=== PATIENT | male | born 1955 | race American Indian/Alaskan Native ===

== ENCOUNTER 2019-09-14 09:00 | Emergency (ER) | payer BC, OTHER ==
[~2019-09-14] VITALS: Ht 165.1 cm; Wt 52.2 kg
== END 2019-09-14 10:57 | disposition home or self-care (01) ==
LOC: ED 09:00
DX: S82.002A Unspecified fracture of left patella, initial encounter for closed fracture (principal); Z87.891 Personal history of nicotine dependence; W01.0XXA Fall on same level from slipping, tripping and stumbling without subsequent striking against object, initial encounter; D64.9 Anemia, unspecified
CPT/HCPCS: 73560; 99283-25

== ENCOUNTER 2021-07-21 15:21 | Emergency (ER) | payer OTHER ==
[~2021-07-21] VITALS: Ht 165.1 cm; Wt 44.7 kg
[2021-07-21] MEDS ORDERED: CHILDREN'S ASPI81 M1 PO (17:18)
[2021-07-21] MEDS ORDERED: FERROCITE324 MG PO (17:19)
[2021-07-21] MEDS ORDERED: B12 ACTIVE1000 MCG PO (17:19)
[2021-07-21] MEDS ORDERED: PROTONIX40 MG PO (17:19)
== END 2021-07-22 01:03 | disposition home or self-care (01) ==
LOC: ED 15:21
DX: U07.1 COVID-19 (principal); D64.9 Anemia, unspecified; Z86.73 Personal history of transient ischemic attack (TIA), and cerebral infarction without residual deficits; Z87.891 Personal history of nicotine dependence; Z79.82 Long term (current) use of aspirin; Z79.899 Other long term (current) drug therapy; Z23 Encounter for immunization
CPT/HCPCS: 99283-25; J7030; M0243; Q0244

== ENCOUNTER 2021-11-29 10:08 | Inpatient (IN) | payer OTHER ==
[~2021-11-29] VITALS: Ht 165.1 cm; Wt 72.3 kg
[~2021-11-29 10:08] MED LIST: CHILDREN'S ASPI81 M1 PO; FERROCITE324 MG PO; PROTONIX40 MG PO; VITAMIN B-121000 MCG PO
--- NOTE | 2021-11-30 08:38 | NUR ---
RECD REPORT FROM NIGHT RN, ASSUMED ALL CARE OF PT
--- NOTE | 2021-11-30 08:40 | NUR ---
RECD REPORT FROM NIGHT RN, ASSUMED ALL CARE OF PT
--- NOTE | 2021-11-30 09:00 | NUR ---
ASSISTED COLLECTIONS OFFICER WITH BOWEL MOVMENT, PT. INCONTINENT OF BOWEL AND DID USE THE URINAL. ROBYN CARE AND SHE GAVE ORAL CARE. PT. RESTING IN BED, MOSTLY NON VERBAL, VERY SHORT ANSWERS, IVF PATENT TO PUMP. IV ABX INFUSED WELL. ENCOURAGE AND ASSIST WITH TURNS EVERY 2 HOURS.
[2021-11-30] MEDS ORDERED: VITAMIN C500 M1 PO (09:04)
--- NOTE | 2021-11-30 13:30 | NUR ---
PT. OOB IN CHAIR, AMBULATED WITH FWW, RN AND PT FROM HIS ROOM AROUND THE HALLS PAST THE NURSES STATION BACK TO HIS ROOM. HE NEEDED ALOT OF DIRECTION AND CUEING. DID BECOME SOB AND RETURNED TO ROOM, PLACED ON 02 2L NC AND RECOVERED WELL TO RA. SAT IN THE CHAIR FOR MEALS AND ATE SOME LUNCH AND DRANK FLUIDS. IVF PATENT TO PUMP. ABX CONTINUE. DC PLANNING IN PLACE
--- NOTE | 2021-11-30 15:18 | NUR ---
IV PUMP ALARMING IV ABX COMPLETE. PT LYING FLAT IN BED AND REPORTS FEEING "UNCOMFORTABLE." PT REPORTS PAIN BUT IS UNABLE TO QUALIFY OR QUANTIFY PAIN. FLACC SCORE OF 3/10. IV ASSESSED, WNL, NO S/S OF PHLEBITIS NOTED. IV FLUIDS WITH POTASSIUM RESTARTED. PT REPORTS HE HAS HAD A BOWEL MOVEMENT. LARGE BROWN/BLACK BOWEL MOVEMENT NOTED. ROBYN CARE DONE. DEPENDS AND LINENS CHANGED. PT IS ABLE TO ROLL SIDE TO SIDE WITH CARES. PT REPOSITIONED IN BED TO SEMIFOWLER POSITION WITH HEAD ELEVATVED TO 20 DEGREES. PT REPORTS HE IS NOW FEELING COMFORTABLE. NO ADDITIONAL NEEDS AT THIS TIME. CALL LIGHT WITHIN REACH. BED RAILS UP. PTS FAMILY MEMBER TABITHA, CALLED FOR UPDATE. PT UNABLE TO CONFIRM IF JENNIFERA CAN BE UPDATED. TABITHA ENCORUAGED TO CALL OTHER MEMBERS OF THE FAMILY FOR UPDATES. PTS PRIMARY RN UPDATED.
--- NOTE | 2021-11-30 15:56 | NUR ---
CHANGED PATIENT'S TELE BATTERY.
--- NOTE | 2021-11-30 15:56 | NUR ---
WHILE IN THERE ALSO HELPED HIM WITH HIS URNIAL. PATIENT ONLY WENT A LITTLE BIT.
--- NOTE | 2021-11-30 17:32 | CONS ---
[facility] [address], [place] [address] Signed DATE OF CONSULTATION: 11/30/2021 CHIEF COMPLAINT: Failure to thrive. HISTORY OF PRESENT ILLNESS: Colten is a 66-year-old gentleman I actually helped back in 2012 with his weight loss at that time. Apparently, he has continued to lose weight to the point that he basically can barely stand if at all. He has been following along with his primary care providers. He is really not able to provide any history whatsoever. He is slow to respond and his level of consciousness seems to be lowered. Unfortunately, his family is not with him currently. I was not able to contact his life partner Ms. Elis Pina. He was at his primary care provider yesterday and he noticed his white blood cell count was elevated, so they sent him to our local emergency room. In the emergency room, he is no difference and really is currently. A chest x-ray was unremarkable. Amazingly, his abdomen is soft, flat and nontender. His white count is elevated and his lactic acid was borderline around 2.2 with elevated liver function test with a low albumin of 2.8 and a low potassium. The chest x-ray was unremarkable. CT scan of abdomen and pelvis showed just mild diffuse small bowel thickening and a thickening to the entire left colon and even part of the rectum. Consequently, ischemic colitis seems less likely. He has been admitted and resuscitated overnight with small improvements in his laboratory work. In the meantime, I was asked to see him as a general surgeon on-call. I did review my colonoscopy from 2012 and it was for weight loss at that time. It was unremarkable. He had a slight left prostate nodule. PAST MEDICAL HISTORY: 1. Chronic T9 compression fracture. 2. Bladder diverticula. 3. Possibly bilateral undescended testicles. 4. Anemia. 5. Weight loss. 6. TIA. 7. Nocturia. 8. Hard of hearing. 9. Chronic low back pain. 10. Cataracts. 11. Dermatitis. PAST SURGICAL HISTORY: Includes open appendectomy and colonoscopy [place] [address] Guevara for weight loss with the left prostate nodule, otherwise unremarkable. SOCIAL HISTORY: Electronically Signed By: AUBREY GUEVARA MD 11/30/21 1732 PATIENT NAME: COLTEN SKELTON CONSULTATION DATE OF : 59 REPORT #: [id number] PHYSICIAN: AUBREY GUEVARA MD PCP: [facility] REPORT IS CONFIDENTIAL AND NOT TO BE RELEASED WITHOUT AUTHORIZATION [facility] [address], [place] [address] Signed Unobtainable. We know he is part of [facility]. He chews snuff and apparently has a walker. Elis Pina is his life partner. He does have a daughter, but I do not see a phone number for her. FAMILY HISTORY: Unobtainable. REVIEW OF SYSTEMS: Unobtainable. ALLERGIES: None. MEDICATIONS: 1. Aspirin. 2. Protonix. 3. Iron. 4. Vitamin B12. 5. Vitamin C. PHYSICAL EXAMINATION: VITAL SIGNS: His blood pressure is 113/75, heart rate is 83, respiratory rate 24, his temperature is 97.4, he is 97% on room. He is 5 feet 5 inches at 44 kg exam. GENERAL: Colten is a 66 old gentleman lying supine in his hospital bed. He is quite cachectic. He is very slow to turn his face to look at me. He mumbles a few words. ABDOMEN: Soft, flat and nontender. Certainly no peritoneal signs or symptoms on exam. LABORATORY DATA: His white blood count is 20,000, neutrophils are 66, his bands were 21, his hemoglobin is 12. BUN is 15, creatinine is 0.5, his potassium is up now to 4.1, glucose 159. Lactic acid was 2.2, it is around 2.0 currently. COVID is positive. His total bilirubin was 0.5, AST 237, ALT 99, alkaline phosphatase 120, albumin is 2.8. His blood cultures are pending. RADIOGRAPHIC STUDIES: A CT chest x-ray is unremarkable except for some stool in his colon. CT of the abdomen and pelvis shows rather significant stool with mild diffuse small bowel wall thickening along with thickening to the left colon and all the way down to part of the rectum, which makes ischemic colitis a little less likely. There is a tiny left kidney lesion about 1 cm, which is likely a dense cyst. ASSESSMENT AND PLAN: Colten is a 66-year-old gentleman with rather significant failure to thrive apparently starting back in 2012. He does have some small bowel thickening diffusely along with Electronically Signed By: AUBREY GUEVARA MD 11/30/21 1759 PATIENT NAME: COLTEN SKELTON CONSULTATION DATE OF : 59 REPORT #: [id number] PHYSICIAN: AUBREY GUEVARA MD PCP: [facility] REPORT IS CONFIDENTIAL AND NOT TO BE RELEASED WITHOUT AUTHORIZATION [address] [address] Signed the left colon part of the rectum which seems like it would be less likely related to ischemic colitis. The stool was black, but he is taking iron therapy and the BUN is normal. This poor this unfortunate gentleman represents an enormous risk for any procedures or sedation whatsoever. We will make our best attempts to contact the family to fill in some of the information. In the meantime, he will be treated conservatively. Aubrey Guevara MD ALB/MODL /[id number] cc: [facility] Aubrey Guevara MD Copies: AUBERY GUEVARA MD ~ Electronically Signed By: AUBREY GUEVARA MD 11/30/21 1732 PATIENT NAME: COLTEN SKELTON CONSULTATION DATE OF : 59 REPORT #: [id number] PHYSICIAN: AUBREY GUEVARA MD PCP: [facility] REPORT IS CONFIDENTIAL AND NOT TO BE RELEASED WITHOUT AUTHORIZATION
--- NOTE | 2021-11-30 20:09 | NUR ---
IV PUMP WAS BEEPING, IT IS NOW INFUSING FINE. PT AND VISITOR DENY NEEDS. CALL LIGHT IS CLOSE.
--- NOTE | 2021-11-30 22:00 | NUR ---
PT WAS INCONTINENT OF STOOL. DOES NOT USE CALL LIGHT HOWEVER WHEN IN ROOM PT WILL VERBALIZE NEEDS. PT ABLE TO TURN AND ASSIST WITH CHANGE. CATH CARE GIVEN WELL.
--- NOTE | 2021-12-01 02:55 | NUR ---
pt asleep. Did not awaken when door opened. RR 22. o2 sat 94% on RA.
--- NOTE | 2021-12-01 03:56 | NUR ---
Pt again changed for incontinence of stool. Pt was able to assist with turning and only 1 person needed to change. Allvyn prophylactically placed to bony prominences of outer hips. Oral care provided. Asked pt if there was anything he needed. Pt states "I just want to ". .
--- NOTE | 2021-12-01 05:14 | NUR ---
PT USED CALL LIGHT. REQUESTS TO BE REPOSIONED. HAS BEEN INCONTINENT OF STOOL X2 MORE. LAB STAFF IN TO DRAW.
--- NOTE | 2021-12-01 08:00 | NUR ---
Report received from hotel night auditor RN. Pt resting in bed at this time. Call light within reach. Will cont to monitor.
--- NOTE | 2021-12-01 08:26 | NUR ---
THIS NURSE SAW THAT THE BED WAS COMPLETELY RAISED WHILE PASSING. BED LOWERED AND PT GIVEN SIPS OF WATER AND TOLERATED WELL. HE ASKED TO WATCH TV AND WAS ASSISTED. PT. POSITIONED WITH PILLOWS ON LEFT SIDE. LEFT RESTING WITH CALL LIGHT IN REACH.
--- NOTE | 2021-12-01 09:12 | NUR ---
PT IS LAYING IN BED WATCHING TV. PT ASKED FOR PAIN MEDICATION NURSE NOTIFIED. I&O AND VS CHARTED CALL LIGHT WITHIN REACH
--- NOTE | 2021-12-01 09:45 | NUR ---
Pt resting in bed and appears comfortable after repositioning w/ assist. Compliant w/ assessment and medication administration. BUE ivs intact and patent. Ragland catheter in place w/ tea-colored urine noted. Pt c/o pain in lower back, prn administered. VSS. Verbalizes needs. Call light within reach. Will cont to monitor.
--- NOTE | 2021-12-01 11:55 | NUR ---
Pt is resting in bed with his eyes closed at this time. Appears comfortable with no signs of distress noted. Call light within reach. Will cont to monitor.
--- NOTE | 2021-12-01 12:30 | NUR ---
Report provided to AZAM Pérez.
--- NOTE | 2021-12-01 12:34 | NUR ---
Patient sitting up in chair, no notable distress. Patient eating lunch at this time. Close to RN station.
--- NOTE | 2021-12-01 13:34 | NUR ---
Tylenol 500mg po admin for reports chronic back pain.
--- NOTE | 2021-12-01 14:12 | NUR ---
Incontinent stool, guadalupe area cleaned at this time. Patient repositioned. Oral care done, teeth cleaned. Patient reports he is doing fine at this time, no needs. IV site patent, abx infusing per provider order. 93% on room air per cpox, no respiratory distress noted. Encouraged patient to call staff if he has needs, pt has nurse call light in his hand. No further needs.
--- NOTE | 2021-12-01 16:54 | NUR ---
In with Dr. Cantu for pt rounding. Dr. Cantu updated patient and daughter with plan of care moving forward. All questions answered at this time. Pending new medication orders from provider.
--- NOTE | 2021-12-01 20:01 | NUR ---
FAMILY CALLED SAYING PT WAS HAVING A HARD TIME BREATHING. PT HOB ELEVATED APPROX 60 DEGREES. NECK RETRACTINS NOTED. APPLED CONTINOUS PULSE OX. 95% ON RA. HR IN THE 110'S. RR 32. PHYSICIAN CALLED. COARSE SOUNDS HEARD DURING EXPIRTORY PHASE. PHYSICIAN NOTICFIED.
--- NOTE | 2021-12-01 22:00 | NUR ---
IN TO HELP RN WITH CARES, STOOL SAMPLE SENT, BOOSTED IN BED, NO FURTHER NEEDS
--- NOTE | 2021-12-01 23:00 | NUR ---
PT NO LONGER HAVING INCREASED WOB AND NECK RETRACTIONS. NO LONGER COARSE EXHALATION.
--- NOTE | 2021-12-02 00:40 | NUR ---
IN TO ASSIST RN WITH CLEANING PT, REPOSITION, STOOL SAMPLE SENT TO LAB, NO FURTHER NEEDS AT THIS TIME
--- NOTE | 2021-12-02 00:48 | NUR ---
INCONTINENT OF STOOL. LAB NEEDED 1 MORE ML AND IT WAS SENT. PT DENIED ANY NEEDS. ORAL CARE GIVEN. DRAW SHEET AND CHUX CHANGED. IVF INFUSING WITHOUT ISSUE
--- NOTE | 2021-12-02 06:44 | NUR ---
PT CONTINUES TO HAVE FREQUENT INCONTINENT STOOLS. URINE HAS GOTTEN Z OS MAINFRAME SYSTEMS PROGRAMMER IN COLOR, HOWEVER IT STILL HAS A BROWN APPEARANCE. RESPIRATORY STATUS IMPROVED FROM THE BEGINNING OF THE SHIFT AND PT IS IN NO DISTRESS.
--- NOTE | 2021-12-02 08:00 | NUR ---
Report received from police shift commander RN. Pt is resting in bed with his eyes closed and appears comfortable. Call light within reach. Will cont to monitor.
--- NOTE | 2021-12-02 10:55 | NUR ---
Pt appears comfortable in bed at this time after working with therapy. Pt denies pain; no sign of discomfort or distress noted. Maintenance fluids changed and electrolyte replacement initiated per order- see emar for administration information. Ragland patent with tea-colored urine. Pt repositioned in bed for breakfast this morning and was able to feed self with setup; poor appetite. Pt verbalizes needs appropriately. Call light within reach. Will continue to monitor.
--- NOTE | 2021-12-02 13:56 | NUR ---
Pt resting in bed w/ his eyes closed and appears comfortable. Tolerating iv meds and fluids. VSS. Remains on room air with no noted respiratory distress. Ragland patent with adequate amount of tea-colored urine. Call light within reach. Will cont to monitor.
--- NOTE | 2021-12-02 15:20 | NUR ---
SCHEDULED MED PROVIDED. PT REPOSITIONED. NO OTHER NEEDS. CALL LIGHT IN REACH.
--- NOTE | 2021-12-02 16:57 | NUR ---
Pt up in his chair at bedside with his in visiting. VSS. Tolerating ivf and oral medications. Ragland catheter in place. No resp distress noted. Pt verbalizes needs. Call light within reach. Will cont to monitor.
--- NOTE | 2021-12-02 19:29 | NUR ---
GINA THE NURSE HELPED ME TRANFERS PATIENT TO HIS CHAIR. PATIENT DID VERY WELL. TRANFERING TO HIS CHAIR.
--- NOTE | 2021-12-02 19:56 | NUR ---
Patient awake in bed watching tv, no distress. Vital signs are stable, afebrile. IV site patent. Chnaged brief as pt incontinent of stool. Patient repositioned. Prompted pt to drink water, tolerated well. Patient denies needs. Call light within reach.
--- NOTE | 2021-12-02 21:35 | NUR ---
Patient's son in room visiting with patient.
--- NOTE | 2021-12-02 22:44 | NUR ---
Patient repositioned at this time. No further needs.
--- NOTE | 2021-12-02 23:54 | NUR ---
Patient resting on left lateral side, no distress. IV fluids infusing per provider order. Call light within reach.
--- NOTE | 2021-12-03 04:06 | NUR ---
Patient sleeping, eyes closed, respirations even and non labored. No notable distress. Personal supplies and call light within reach.
--- NOTE | 2021-12-03 05:47 | NUR ---
Patient incontinent of stool, cleansed guadalupe area and placed new brief. Tylenol 500mg po admin for generalized pain. Vital signs taken, stable. Repositioned patient at this time. Water provided. Call light within reach.
--- NOTE | 2021-12-03 07:10 | NUR ---
REPORT RECEIVED FROM AZAM CARIAS. PT RESTING ON BACK WITH EYES CLOSED, HEAD OF BED ELEVATED TO 20 DEGREES. RESPRIATIONS EVEN AND UNLABORED. BED RAILS UP. CALL LIGHT WITHIN REACH. PT ALLOWED TO REST.
--- NOTE | 2021-12-03 08:08 | NUR ---
MORNING ASSESSMENT AND MEDICATION DUE. PT RESTING IN BED WITH EYES CLOSED, RESPIRATIONS EVEN AND UNLABORED. PT AWAKENS TO VOICE AND LIGHT TOUCH. PT REPORTS "I POOP" BUT DOES NOT ANSWER ADDITIONAL QUESTIONS INITALLY. 1 PERSON ASSIST UP TO BEDSIDE COMODE. PT HAS ADDITIONAL BROWN/BLACK LOOSE BOWEL MOVEMENT IN COMODE. ROBYN CARE DONE. CATHETER CARE DONE. PT VERY SOLIED. PT ABLE TO MAINTAIN SITTING POSITION ON BEDSIDE COMODE INDEPENDANTLY. 2 PERSON ASSIST WITH ROBYN CARE AND TO GET UP TO CHAIR. PT DOES NOT REPORT PAIN WHEN ASKED BUT IS NOT ANSWERING QUESTIONS AT THIS TIME. FLACC SCORE OF 0/10. ORIENTATION QUESTIONS ASKED, PT MAKES EYE CONTACT BUT ODES NOT ANSWER QUESTIONS. DIFFICULT TO TELL IF PT CANNOT HEAR QUESTIONS, IS DISORIENTED, OR IS SIMPLY NOT ANSWERING QUESTIONS. PT MAKES OCCAITONAL REQUESTS DURING CARES SUCH "CAN YOU GET ME A PILLOW." SPEACH GARBLED. LUNG SOUNDS CLEAR BUT VERY DEMINISHED IN BASES. OCCATIONAL COUGH NOTED, NO SPUTUM SEEN AT THIS TIME. ABDOMEN SOFT. BOWEL TONES HEARD. PT DENIES PAIN WITH PALPATION TO ABDOMEN. PT IS TOLERATING PUREED DIET, PT FEEDING SELF, MINIMAL APPITITE. YELLOW CONCENTRATED URINE NOTED IN CATHETER, LIGHTENING IN COLOR. CATHETER CARE DONE. ALLEVYN REMAINS OVER MARY PROMINANCE OF COCCYX. PT REMAINS UP TO CHAIR AT THIS TIME. CALL LIGHT WITHIN REACH.
--- NOTE | 2021-12-03 08:54 | EKG ---
[facility] [address] [facility] [place] [address] Signed Sinus rhythm with premature atrial complexes in a pattern of bigeminy Low voltage QRS Inferior infarct , age undetermined Abnormal ECG No previous ECGs available Confirmed by DANIELA MONTES MD ([id number]) on 12/03/2021 8:54:10 AM Electronically Signed By: DANIELA MONTES MD 12/03/21 0854 PATIENT NAME: SKELTONCAROLINE Electrocardiogram DATE OF : 59 PHYSICIAN: DANIELA MONTES MD REPORT #: [id number] REPORT IS CONFIDENTIAL AND NOT TO BE RELEASED WITHOUT AUTHORIZATION
--- NOTE | 2021-12-03 09:37 | NUR ---
THIS RN TO ROOM TO CHECK ON PT. PT RESTING IN CHAIR WITH EYES CLOSED, RESPIRATIONS EVEN AND UNLABORED. PT SUPPORTED WITH PILLOWS. PT ALOWED TO REST. CALL LIGHT WITHIN REACH.
--- NOTE | 2021-12-03 11:19 | NUR ---
PUMP ALARMING, FLUIDS AND IV ABX COMPLETE. IV FLUSHED AND SALINE LOCKED AT THIS TIME. ALCOHOL CAP APPLIED. PT UNABLE TO ANSWER QUESITONS ABOUT PAIN. HEARING AIDS IN PLACE. PT NODS "YES" WHEN ASKED IF HE IS COMFORTABLE. FLACC SCORE OF 0/10. FAMILY AT BEDSIDE. CALL LIGHT WITHIN REACH. NO ADDITIONAL NEEDS AT THIS TIME.
--- NOTE | 2021-12-03 12:39 | NUR ---
THIS RN TO ROOM TO CHECK ON PT. PT REPORTS "I POOP." 1 PERSON ASSIST UP TO BEDSIDE COMODE. PT HAS ADDITIONAL LOOSE BROWN/BLACK MUCOID BOWEL MOVEMENT. ROBYN CARE DONE. DEPENDS CHANGED. CATHETER CARE DONE. 1 PERSON ASSIST BACK TO BED. PTS CAREGIVER HELPING PT TAKE BITES OF FOOD. PT REPROTS MINIMAL APPITIE. WHITE TONGUE NOTED. MESSAGE SENT TO MD REGARING POSSIBLE CANDIASIS INFECTION. AWAITING NEW ORDERS. PT REPORTS FEELING COMFORTABLE. NO ADDITIONAL NEEDS. CALL LIGHT WITHIN REACH. BED RAILS UP.
--- NOTE | 2021-12-03 13:01 | NUR ---
THIS RN IS LEAVING ROOM PT BEGINGS CHOAKING ON BITE OF MASHED POTATOES. SUCTION APPLIED. PT ENCORUAGED TO COUGH. HEAD OF BED AT 65 DEGREES WHILE EATING. PT CLEARS FOOD. LUNG SOUNDS REMAIN CLEAR. PT REPORTS "COULDN'T SWALLOW." REMAINDER OF LUNCH TRAY REMOVED. PT GIVEN SMALL SIPS OF THICKENED LIQUIDS. PTS GROCERY SPECIALIST REMAINS AT BEDSIDE. CHARGE NURSE UPDATED. CALL LIGHT WITHIN REACH.
--- NOTE | 2021-12-03 13:14 | NUR ---
DR MONTES UPDATED ON PTS CHOAKING EPISODE, WHITE TOUNGUE AND ASSESSMENT. VERBAL ORDERS GIVEN TO REMOVE FOOD FROM PTS ORDERS GIVENING HIM ONLY SIPS OF FLUIDS. AND RESTART IV FLUIDS. AWAITING MEDICAITONS FROM [facility]..
--- NOTE | 2021-12-03 13:52 | NUR ---
AFTERNOON ASSESSMENT AND MEDICATION DUE. PT RESTING IN BED WITH EYES CLOSED. HEAD OF BED ELEVATED TO 49 DEGREES. PT RESPIRATIONS EVEN AND UNLABORED. PT AWAKENS TO LIGHT TOUCH. PT DENIES PAIN AND NAUSEA. 0/10 FLACC SCORE AT THIS TIME. PT ORIENTED AND ANSWERING QUESTIONS TO ALL BUT EVENTS AND YEAR. PT STATES IT IS "192." OTHERWISE ANSWERING QUESTIONS APPROPRIATLY ALTHOUGH SPEACH REMAINS GARBLED, PT REMAINS VERY HARD OF HEARING AND IS DIFFICLUT TO UNDERSTAND. IV ASSESSED, WNL, IV FLUIDS STARTED. URINE OUTPUT NOTED TO BE DARKER IN COLOR, NOW DARK YELLOW. LUNG SOUNDS REMAIN CLEAR ALTHOUGH DEMINISHED IN LOWER LOBES. NO SPUTUM NOTED WITH COUGH AT THIS TIME. MILD SNOR NOTED WITH SLEEPING. CMS INTACT WITH SLOW CAPILLARY REFILL. BOWEL TONES ACTIVE. ABDOMEN SOFT AND NON TENDER. PT NOW RESTING WITH EYES CLOSED. BED RAILS UP. CALL LIGHT WITHIN REACH. CAREGIVER AT BEDSIDE.
--- NOTE | 2021-12-03 15:10 | NUR ---
THIS RN TO ROOM WITH MD FOR ROUNDS. PT RESTING IN BED WITH EYES CLOSED, AWAKENS TO VOICE. PT HAS LIMITED VERBAL INTERACTION STATING ONLY "I POOP." PT SHAKES HEAD WHEN ASKED ABOUT PAIN. PT AND FAMILY UPDATED ON PLAN OF CARE. KYLAH DELA CRUZ, TO BEDSIDE TO ASSIST PT WITH CHAING DEPENDS. NO ADDITIONAL NEEDS AT THIS TIME. HEAD OF BED REMAINS ELEVATED TO 40 DEGREES. MILD AUDIBLE WHEEZE NOTED. PT MADE SRICK NPO AT THIS TIME PER MD ORDER. BED RAILSUP. CALL LIGHT WITHIN REACH.
--- NOTE | 2021-12-03 16:30 | NUR ---
THIS RN TO ROOM TO CHECK ON PT. PT RESTING ON LEFT SIDE, APPEARS UNCOMFORTABLE. THIS RN INTO ROOM AND PT STATES "I POOP." ROBYN CARE DONE, DEPENDS CHANGED. PT REPOSIIONTED IN BED TO SEMIFOWLER WITH HEAD OF BED ELEVATED TO 40 DEGREES. PT REPORTS FEELING COMFORTABLE. MEDICATION GIVEN WITH SMALL SIP OF THICKENED WATER. NO ADDITIONAL NEEDS AT THIS TIME. BED RAILS UP. CALL LIGHT WITHIN REACH.
--- NOTE | 2021-12-03 16:56 | NUR ---
PT HERE FOR COLITIS. PT REMAINS A 1-2 PERSON ASSIST UP TO CHAIR THIS SHIFT. PT UNSTEADY ON FEET BUT ABLE TO STAND AND TRANSFER WITH ASSISTNACNE. PT MADE NPO THIS SHIFT AFTER CHOAKING EPOSODE EATING MASHED POTATOES. ASPIRATION PRECAUTIONS IN PLACE. PT TOELRATES SIPS OF THICKENED WATER WITH MEDICATIONS. PT REMAINS ON ROOM AIR AT THIS TIME. FREQUENT MUCOID/SOFT BROWN/BLACK BOWEL MOVEMENTS SHIT SHIFT. WEINBERG CATHETER IN PLACE, QUANTTY MINIMAL BUT SUFFICIENT, DARK YELLOW URINE. PT VERY HARD OF HEARING BUT ORIENTED TO ALL BUT DATE AND EVENTS WHEN HE RESPONDS TO QUESTIONS. PT DOES NOT USE CALL LIGHT AND MAKES MINIMAL NEEDS KNOWN. FAMILY/CAREGIVER AT BEDSIDE.
--- NOTE | 2021-12-03 17:30 | NUR ---
THIS RN TO ROOM TO CHECK ON PT. PT RESTING IN BED WITH HEAD OF BED ELEVATED TO 40 DEGREES. PT GIVES THUMBS UP AND SMILES WHEN ASKED HOW HE IS DOING. PT DENIES REQUESTS OR COMPLAINTS. CALL LIGHT WITHIN REACH. BED RAILS UP.
--- NOTE | 2021-12-03 18:21 | NUR ---
EVENING VITALS DUE. THIS RN TO ROOM. PT STATES "YES" WHEN ASKED IF HE NEEDS TO VOID. PT UP TO BEDSIDE WITH 2 PERSON ASSIST WHEN PT STATES "I DON'T NEED TO GO THERE." 1 PERSON ASSIST BACK TO BED. PT REMAINS IN SEMI DAHL POSITION WITH HEAD OF BED ELEVATED TO 35 DEGREES. PT ASKES FOR WATER, THROAT CLEARING NOTED. PT REMAINS NPO, NO WATER GIVEN. URINE QUANTITY DECREASING, 75ML TEA COLORED URINE NOTED AT THIS TIME. PT REPORTS FEELING COMFORTABLE. NO ADDITIONAL NEEDS AT THIS TIME. CALL LIGHT WITHIN REACH. BED RAILS UP.
--- NOTE | 2021-12-03 18:40 | NUR ---
DR MONTES CALLED AND UPDATED REGARDING PTS URINE OUTPUT STAUTS. ORDERS GIVEN FOR IV FLUID BOLUS. REPEAT BACK DONE. ORDERS ENTERED. IV FLUIDS STARTED, BOLUS RUNNING CONCURRENTLY WITH IV FLUIDS PER MD ORDER. NO ADDITIONAL NEEDS AT THIS TIME. CALL LIGHT WITHIN REACH. BED RAILS UP.
--- NOTE | 2021-12-03 19:25 | NUR ---
BEDSIDE REPORT RECEIVED FROM OFFGOING RNDOREEN. PT RESTING IN BED. CALL LIGHT IN REACH.
--- NOTE | 2021-12-03 22:00 | NUR ---
V/S AND I&O'S COMPLETED. WEINBERG CARE DONE. PATIENT HAD LOOSE STOOL. PATIENT REPOSITIONED. WHITE BOARD UPDATED. PRIMARY RN DAMI WAS WITH PATIENT.
--- NOTE | 2021-12-03 22:18 | NUR ---
PT ASSESSMENT COMPLETE. PT RESTING IN BED AWAKE. WATCHING TV. PT RESPONDS WELL TO WRITTEN NOTES. DENIES PAIN, NAUSEA, OR SOB. PT ALERT AND ORIENTED X 3. DISORIENTED TO DATE. PT REPORTS DISCOMFORT WITH IV, EDUCATION PROVIDED. PT ATTENDS CHANGED. SMALL MUCOID BM PRESENT. PT REPOSITIONED IN BED. CATHETER CARE PREFORMED. WEINBERG CATH DRAINING CONCENTRATED URINE. IV FLUSHED WITH 10 ML NS. IVF INFUSING ORDERED. VS OBTAINED. WNL. PT DENIES FURTHER NEEDS AT THIS TIME. CALL LIGHT IN REACH.
--- NOTE | 2021-12-03 23:50 | NUR ---
PT ROUNDING. PT RESTING IN BED WITH EYES CLOSED. PT WAKES WHILE SOFTWARE PROJECT MANAGER AT BEDSIDE. QUICKLY FALLS BACK TO SLEEP. CALL LIGHT IN REACH.
--- NOTE | 2021-12-04 02:52 | NUR ---
PT RESTING IN BED WITH EYES CLOSED. RESPIRATIONS EVEN AND UNLABORED. PT APPEARS TO BE SLEEPING. CALL LIGHT IN REACH.
--- NOTE | 2021-12-04 04:40 | NUR ---
PT ASSESSMENT COMPLETE. PT RESTING IN BED WITH EYES CLOSED. WAKES EASILY TO TOUCH. RESPONDS WELL TO WRITTEN WORD. PT DENIES PAIN, NAUSEA, OR SOB. IVF INFUSING ORDERED. WEINBERG CATH DRAINING CLEAR YELLOW URINE WITH GOOD UO. LOOSE MUCOID STOOL PRESENT IN ATTEND. CHANGED BY CONTINGENTS SUPERVISOR AND THIS MANAGER LOGISTIC. PT REPOSITIONED. TOLERATED WELL. PT DENIES FURTHER NEEDS AT THIS TIME. CALL LIGHT IN PT'S HAND.
--- NOTE | 2021-12-04 06:40 | NUR ---
PT ROUNDING. WEINBERG CATH EMPTIED. CLEAR YELLOW URINE PRESENT. ATTENDS CHANGED. SMALL BROWN MUCOID STOOL PRESENT. PT REPOSITIONED. DENIES FURTHER NEEDS AT THIS TIME. CALL LIGHT IN REACH.
--- NOTE | 2021-12-04 07:19 | NUR ---
Patient in bed resting, respirations even and non labored. Patient has no distress. Personal supplies and call light within reach.
--- NOTE | 2021-12-04 10:13 | NUR ---
SPOKE WITH PATIENT DAUGHTER SENDY WHO IS ACTING THE POINT OF CONTACT AT THIS TIME. CASE MANAGEMENT ASSESSMENT COMPLETED. PRIOR TO PATIENT ILLNESS SENDY STATES PATIENT WAS ABLE TO CARE FOR HIMSELF AND DRIVE. PATIENT DID NOT REQUIRE DME. DISCUSSED WITH SENDY TRACY CONCERNS THAT PATIENT MAY NEED FURTHER PT AT A SNF FOR DECONDITIONING BEFORE DISCHARGE HOME. SENDY FEELS THAT THIS WOULD BE A GOOD OPTION SHE AGREES THE PATIENT MAY NEED MORE HELP. SENDY WOULD LIKE TO DISCUSS THIS PLAN WITH THE PATIENTS AND THE REST OF THE FAMILY. SENDY STATES THAT HER MOTHER HAS BEEN STRESSED ABOUT THE PATIENTS DISCHARGE HOME AND SHE FEELS THIS MAY HELP. WILL AWAIT A CALL BACK.
--- NOTE | 2021-12-04 10:30 | NUR ---
Patient incontinent of stool, dark green stool with mucus noted. Carol care done, new brief placed. Patient repositioned with pillows. IV sites infiltrated, new IV placed at this time. Patient not very interactive with conversation, he is also hard of hearing. Oral care provided, chap stick placed. No further needs at this time. Personal supplies and call light within reach.
--- NOTE | 2021-12-04 14:21 | NUR ---
Patient repositioned at this time. Admin tylenol 500mg po for back discomfort. Patient's IV site is patent. Oral care provided. Personal supplies and call light within reach.
--- NOTE | 2021-12-04 15:45 | NUR ---
Patient resting in bed watching tv, no distress. IV site is patent. Patient repositioned at this time. No further needs, call light within reach.
--- NOTE | 2021-12-04 16:37 | NUR ---
ANSWERED PT CALL LIGHT, PT BOOSTED TO HOB, BRIEF CHANGED, PERICARE CATH CARE DONE. CALL LIGHT WITHIN REACH, VS AND I/O DONE PER RN, NO FURTHER ASSISTANCE NEEDED AT THIS TIME
--- NOTE | 2021-12-04 17:46 | NUR ---
Family in visiting with patient.
--- NOTE | 2021-12-04 18:14 | NUR ---
Patient respositioned at this time. Ragland patent, clear yellow urine noted. Patient denies pain at this time. Family in room visiting. Oral care provided. No further needs.
--- NOTE | 2021-12-04 19:05 | NUR ---
BEDSIDE REPORT RECEIVED FROM OFFGOING RNVY. PT BOOSTED IN BED AND REPOSITIONED. DENIES FURTHER NEEDS. CALL LIGHT IN REACH.
--- NOTE | 2021-12-04 22:18 | NUR ---
PT ASSESSMENT COMPLETE. PT UTILIZES CALL LIGHT, PHYSICIAN PRACTICE CONSULTANT TO ROOM. PT REPORTS PAIN 8/10 TO BILATERAL HIPS. STATES HE EXERCISED TO TODAY. PRN ADMINSITERED, SEE EMAR. PT DENIES SOB OR NAUSEA. WEINBERG CATH DRAINING CLEAR YELLOW URINE. ATTENDS IN PLACE. SMALL BROWN MUCOUS STOOL PRESENT IN ATTENDS. CHANGED. PT REPOSITIONED AT THIS TIME. IV FLUSHED WITH 10 ML NS. WNL. IVF INFUSING ORDERED. PO MEDS PROVIDED WITH APPLESAUCE AND THICKENED LIQUIDS. PT TOLERATED WELL. PT DENIES FURTHER NEEDS AT THIS TIME. CALL LIGHT IN REACH.
--- NOTE | 2021-12-04 23:43 | NUR ---
LOOM CONTROL CHAIN BUILDER TO ROOM FOR IV PUMP ALARMING. PT RESTING IN BED AWAKE. STATES HE IS TOO HOT. REMOVED BLANKETS AND LEFT THE SHEET OVER PT. THERMOSTAT ADJUSTED. PT DENIES FURTHER NEEDS. CALL LIGHT IN REACH.
--- NOTE | 2021-12-05 02:25 | NUR ---
PT ASSESSMENT COMPLETE. PT RESTING IN BED AWAKE. RESPONDS TO WRITTEN WORD. AGREES HE IS COMFORTABLE. ATTENDS CHANGED. SMALL AMOUNT OF MUCOID STOOL PRESENT IN ATTENDS. PT CHANGED AND REPOSITIONED, PROPPED WITH PILLOW. WEINBERG CATH DRAINING CLEAR YELLOW URINE. IV FLUSHED WITH 10 ML NS. WNL. IVF INFUSING ORDERED. PT DENIES FURTHER NEEDS AT THIS TIME. CALL LIGHT IN REACH.
--- NOTE | 2021-12-05 04:15 | NUR ---
PT RESTING IN BED AWAKE. PT DENIES NEEDS. CALL LIGHT IN REACH.
--- NOTE | 2021-12-05 07:04 | NUR ---
REPORT RECEIVED FROM AZAM LOMAX. PT RESTING IN BED WITH EYES CLOSED, RESPIRATIONS EVEN AND UNLABORED. HEAD OF BED ELEVATED TO 25 DEGREES. BED RAILS UP. CALL LIGHT WITHIN REACH. PT ALLOWED TO REST.
--- NOTE | 2021-12-05 08:27 | NUR ---
MORNING ASSESSMENT AND MEDICATION DUE. PT SOILED WITH LARGE AMOUNT OF BROWN MUCOID STOOL. ROBYN CARE DONE. DEPENDS CHANGED. CATHETER CARE DONE. STAND BY ASSIST WITH FWW UP TO CHAIR. ORAL CARE, AM CARE, AND DENTURE CARE DONE. PT REPORTS 8/10 PAIN IN BACK "WHERE MY SURGERY WAS." PT DENIES NAUSEA AND REPROTS HUNGER FOR BREAKFAST. HEART TONES REGULAR, MILD TACHYCARDIA NOTED. LUNG SOUNDS CLEAR ALTHOUGH DEMINISHED IN LOWER LOBES. PT ALERT, ORIENTD TO SELF, PLACE, AND EVENTS, FOLLOWS DIRECTIONS. PT UNSURE OF DATE STATING IT IS "JANUARY" BUT KNOWS YEAR. ABDOMEN SOFT. MILD DISTENTION NOTED. BOWEL TONES ACTIVE. SPEACH THERAPY TO BEDSIDE TO ASSIST PT WITH BREAKFAST. PT TOLERTING WELL, NO COUGHING THROAT CLEARING OR CHOAKING NOTED. DENTURES IN PLACE. WEINBERG CATHETER DRAINING LIGHT YELLOW URINE. PT REMAINS UP TO CHAIR, CALL LIGHT WITHIN REACH. NO ADDITIONAL NEEDS AT THIS TIME.
--- NOTE | 2021-12-05 09:43 | NUR ---
PT IS UP IN CHAIR WATCHING TV. I&O AND VS CHARTED. CALL LIGHT WITHIN REACH NO FURTHER TASKS AT THIS TIME
--- NOTE | 2021-12-05 10:00 | NUR ---
THIS RN TO ROOM TO CHECK ON PT. PT UP TO CHAIR. RESTING WITH EYES CLOSED. VERBAL ORDERS FROM DR. MONTES TO CLAMP WEINBERG CATHETER AND SEE IF PT HAS URGE TO VOID IN THE NEXT 4 HOURS. PROCEEDURE EXPLAINED TO PT IN WRITING. WEINBERG CATHETER CLAMPED. PT REPORTS 7/10 BACK PAIN AND DECLINES ADDITIONAL INTERVENTIONS. NO ADDITIONAL REQUETS OR COMPLAINTS. CALL LIGHT WITHIN REACH.
--- NOTE | 2021-12-05 11:09 | NUR ---
THIS RN TO ROOM TO CHECK ON PT. PT WORKING WITH PHYSICAL THERAPY, GETTING BACK TO BED. PT DENIES FEELINGS OF NEED TO VOID AT THIS TIME. WEINBERG CATHETER REMAINS CLAMPED. NO ADDITOINAL NEEDS AT THIS TIME. CALL LIGHT WITHIN REACH. BED RAILS UP.
--- NOTE | 2021-12-05 11:57 | NUR ---
THIS RN TO ROOM TO CHECK ON PT. PT REMAINS UP TO CHAIR. PT REPORTS HE NEEDS TO HAVE A BOWEL MOVEMENT. STAND BY ASSIST UP TO BEDSIDE COMODE. PT VOIDS MODERATE AMOUNT OF MUCOID RED/BROWN BOWEL MOVEMENT. ROBYN CARE DONE. DEPENDS CHANGED. PT CONTINUES TO DENY NEED TO VOID. STAND BY ASSIST WITH FWW BACK TO CHAIR. PT DENIES ADDITIONAL REQUESTS OR COMPLAINTS. CALL LIGHT WITHIN REACH.
--- NOTE | 2021-12-05 12:26 | NUR ---
MEDICATION DUE. GIVEN ORDERED. PT REMAINS UP TO CHAIR, LUNCH DELIVERED. PT FEEDING SELF. PT DENIES ADDITIONAL REQEUSTS OR COMPLAINTS. CALL LIGHT WITHIN REACH.
--- NOTE | 2021-12-05 13:15 | NUR ---
THIS RN TO ROOM WITH MD FOR ROUNDS. PT SMILING AND ANSWERS QUESTIONS WRITTEN ON PAPER. PT REPORTS FEELING LIKE HE HAS A BETTER APPITITE ANDMORE ENERGY. PLAN OF CARE REVIEWED WITH PT. PT CONTINUES TO REPORT NO URGE TO VOID. WILL BLADDER SCAN AT ~1400. NO ADDITIONAL REQUESTS OR COMPLAINTS. CALL LIGHT WITHIN REACH. PT REMAINS UP TO CHAIR.
--- NOTE | 2021-12-05 13:41 | NUR ---
PT IS UP IN CHAIR WATCHING TV. I&O AND VS CHARTED CALL LIGHT WITHIN REACH NO FURTHER TASKS AT THIS TIME
--- NOTE | 2021-12-05 14:27 | NUR ---
BLADDER SCAN DONE UPON RN REQUEST. BLADDER SCAN HAD 264 mL, RN NOTIFIED. ASKED PATIENT IF HE HAD TO PEE, PATIENT SAID "EHH MAYBE." RN IN ROOM AT THIS TIME.
--- NOTE | 2021-12-05 14:31 | NUR ---
AFTERNOON ASSESSMENT DUE. PT UP TO CHAIR. TAPE DECK INSTALLER AT BEDSIDE FOR BLADDER SCAN. BLADDER SCANNED AT 264ML. PT REPORTS "i HAVE TO GO." UNCLEAR IF PT UNDERSTANDING VOIDING TRIAL. PT REPORTS "I WANT TO KEEP THE CATHETER, I'LL TIRED TO HOLD IT." VOIDING TRIAL EXPLAINED IN DETAIL. PT CONTINUES TO STATE "I HAVE TO GO." WEINBERG CATHETER DC'D PER PROTOCOL. URINAL PROVIDED. PT UNABLE TO VOID. EDUCATION DONE WITH PT REGARDING CALLING WHEN HE NEEDS TO VOID. WILL CONTINUE TO MONITOR BLADDER SCAN VALUES. PT REQUESTS TO GET BACK TO BED. STAND BY ASSIST WITH FWW BACK TO BED. PT DENIES PAIN AND NASUEA. IV WNL, NO S/S OF PHLEBITIS NOTED. PT CONTINUES TO BE ORIENTED TO ALL BUT DATE AND TIME. WRITING METHOD OF COMMUNICATION USED. HEAR TTONES REGULAR. LUNG SOUNDS CLEAR. ABDOMEN REMAINS MILD DISTENDED AND TENDER TO PALPATION. ACTIVE BOWEL TONES NOTED. NO BOWEL MOVEMENT AT THIS TIME. DIRRHEA SLOWING DOWN. PT DENIES ADDITIONAL REQUESTS OR COMPLAINTS. CALL LIGHT WITHIN REACH. HEAD OF BED ELEVATED TO 37 DEGREES. BED RAILSUP.
--- NOTE | 2021-12-05 16:33 | NUR ---
Pt bladder scanned for 230. Encouraged to void and assisted with using urinal- no void at this time. Pt denies further needs.
--- NOTE | 2021-12-05 16:37 | NUR ---
PT HERE FOR COLITIS AND CDIFF. PT UP WITH 1 PERSON ASSIST AND FWW UP TO CHAIR FOR MEALS THIS SHIFT. PT TOELRATING PUREED DIET WITH IMPROVING APPITITE. PT MORE ALERT AND OREINTED THIS SHIFT. SMILING AND INTERACTING WITH CARES. WRITING USED FOR COMMUNICATION. VOIDING TRIAL IN PROGRESS WEINBERG CATHETER REMOVED, PT HAS YET TO VOID, BLADDER SCANS X2. IV FLUIDS CONTINUE. PRN TYELNOL GIVEN FOR BACK PAIN. LUNG SOUNDS CLEAR PT TOLERATING ROOM AIR. PT MILDY TACHYCARDIA THROUGHOUT SHIFT. BOWEL MOVEMENTS LESS FREQUEN THIS SHIFT. PT DOES NOT USE CALL LIGHT OR MAKE NEEDS KNOWN. FREQUENT ROUNDING PERFORMED.
--- NOTE | 2021-12-05 17:30 | NUR ---
MEDICATION DUE. STAND BY ASSIST WITH FWW UP TO BEDSIDE COMODE. MUCOID BOWEL MOVEMENT NOTED IN DEPENDS. PT HAS ADDITONAL BROWN/RED MUCOID BOWEL MOVEMENT IN COMODE. ROBYN CARE DONE. DEPENDS CHANGED. NEW ALLEVYN APPLEID TO COCCYX. NON BLANCHABLE REDNESS NOTED WITH 3 SPOTS OF PEALING DRY SKIN EACH 1CM CIRCUMFRENTIAL. STAND BY ASSIST UP TO CHAIR. MEDICATION GIVEN. DINNER DELIVERED. PT FEEDING SELF. PT CONTINUES TO DECLINE NEED TO PEE. MONITORING BLADDER SCANS. NO ADDITIONAL NEEDS. CALL LIGHT WITHIN REACH.
--- NOTE | 2021-12-05 18:00 | NUR ---
DR MONTES CALLED AND UPDATED REGARDING PTS VOIDING STATUS AND BLADDER SCANS. ORDER GIVEN TO BLADDER SCAN PT AT ~2100 TONIGHT IF PT STILL HASN'T VOIDED AND CALL DR MONTES WITH RESULTS AND VOIDING STATUS. ORDERS ENTERED.
--- NOTE | 2021-12-05 19:30 | NUR ---
RECEIVED REPORT FROM DOREEN NASCIMENTO. pt RESTING IN BED. NO NEEDS AT THIS TIME. FAMILY MEMBER CURRENTLY LEAVING FOR THE NIGHT. BED ALARM ON. CALL LIGHT WITHIN REACH.
--- NOTE | 2021-12-05 20:30 | NUR ---
IN TO DO ASSESSMENT. pt TOOK TIME TO RESPOND BUT WAS ALERT AND ORIENTED TO SELF AND SITUATION. ASSESSMENT DONE, LUNGS COARSE. pt HAD DIFFICULTY CLEARING SPUTUM AFTER COUGHING. pt ABLE TO SUCTION SELF. ORAL CARE DONE, DENTURES REMOVED AND CLEANED. DEPENDS CLEAN AT THIS TIME. pt DENIES NEED TO URINATE. PROVIDED THICKENED LIQUIDS. PAIN 8/10 PRN GIVEN (SEE MAR). CALL LIGHT WITHIN REACH. BED ALARM ON.
--- NOTE | 2021-12-05 21:50 | NUR ---
IN TO GIVE MEDICATIONS. VITALS DONE. pt INCONT OF STOOL, PERICARE AND FRESH DEPENDS. MEDICATION GIVEN (SEE MAR). pt ABLE TO SWALLOW WITHOUT ISSUE, HOB 90 DEGREES. pt DENIED NEED TO VOID. PROVIDED A WARM BLANKET. CALL LIGHT WITHIN REACH. BED ALARM ON.
--- NOTE | 2021-12-05 22:00 | NUR ---
CALLED DR MONTES, UPDATED ON BLADDER SCAN OF 350MLS. AND NO VOID. NEW ORDER FOR WEINBERG ENTERED.
--- NOTE | 2021-12-05 22:50 | NUR ---
IN TO PLACE WEINBERG. pt VERBALIZED UNDERSTANDING OF PROCEDURE. MET RESISTANCE USING 16Fr CATH, 14Fr COUDE PLACED WITHOUT ISSUE. URINE IS TEA COLORED. pt INCONT OF STOOL, PERICARE DONE. FRESH DEPENDS. REPOSITIONED. NO FURTHER REQUESTS AT THIS TIME. CALL LIGHT WITHIN REACH. BED ALARM ON.
--- NOTE | 2021-12-05 23:07 | NUR ---
ATTEMPTED TO INSERT WEINBERG CATHETER. PATIENT ALERT AND ORIENTED. FELT RESISITANCE AND COULDN'T GET URINE RETURN. PATIENT SHOWED SIGNS OF DISCOMFORT SO RN ASHLEY DECIDED TO TRY A COUDE AND WAS SUCCESSFUL. PATIENT VOID 325. NO OTHER NEEDS VOICED AT THIS TIME. CALL LIGHT WITHIN REACH.
--- NOTE | 2021-12-06 01:11 | NUR ---
ROUNDED ON pt. RESTING IN BED WITH EYES CLOSED, RESPIRATIONS REGULAR AND UNLABORED. CALL LIGHT WITHIN REACH. BED ALARM ON.
--- NOTE | 2021-12-06 01:44 | NUR ---
2PA. PATIENT HAD A LOOSE LARGE BOWEL MOVEMENT. PATIENT REPOSITIONED.
--- NOTE | 2021-12-06 01:45 | NUR ---
IN TO ASSIST VISUALIZATION DEVELOPER. pt HAD LARGE BM, BROWN LIQUID. ASSESSMENT DONE. NO CHANGES NOTED. pt DENIED NEEDS FOR PAIN MEDICATION. CALL LIGHT WITHIN REACH. BED ALARM ON.
--- NOTE | 2021-12-06 03:00 | NUR ---
ROUNDED ON pt. RESTING IN BED AWAKE. pt ABLE TO REPOSITION SELF. NO NEEDS AT THIS TIME. CALL LIGHT WITHIN REACH.
--- NOTE | 2021-12-06 04:41 | NUR ---
CALL LIGHT ON. pt INDICATED AN OVERFLOWING DEPENDS. FRESH LINENS AND PERICARE DONE. pt CONTINUED TO BE INCONT OF STOOL. CLEANED. REPOSITIONED. FRESH WARM BLANKETS. NO FURTHER REQUESTS AT THIS TIME. URINE LESS CONCENTRATED IN WEINBERG. CALL LIGHT WITHIN REACH.
--- NOTE | 2021-12-06 06:05 | NUR ---
ASSISTED AZAM RAMIREZ. V/S AND I&O'S COMPLETED.
--- NOTE | 2021-12-06 06:53 | NUR ---
ROUNDED ON pt. DEPENDS HAD A SMALL LIQUID BM, FRESH DEPENDS AND PERICARE. NO REQUESTS AT THIS TIME. CALL LIGHT WITHIN REACH. BED ALARM ON.
--- NOTE | 2021-12-06 06:55 | NUR ---
2 PA CHANGED PATIENT'S ATTENDS WITH INCONTINENT LOOSE BOWEL MOVEMENT.
--- NOTE | 2021-12-06 09:30 | NUR ---
PT IS SITTING UP IN CHAIR WATCHING TV. I&O AND VS CHARTED CALL LIGHT WITHIN REACH NO FURTHER TASKS AT THIS TIME
--- NOTE | 2021-12-06 09:55 | NUR ---
PT. OOB IN CHAIR, CAN LIFT HIS HEAD OFF THE CHAIR WHILE SITTING, CAN HOLD HIS PILLS TO TAKE ORALLY, WORKED WITH ST THIS MORNING, ADVANCING DIET TO SOFT BITE SIZED?, MILD THICK LIQUIDS. FOLLOWS COMMANDS. WEINBERG PATENT TO SD, D5LR W/20 KCL AT 75 ML/HR, REPLACING KCL AND MAG TODAY. MOSTLY NON VERBAL, VERY SLOW MOVEMENT, WATCHING TV. LUNGS CLEAR, ALLEVYN ON COCCYX FOR PREVENTION.
--- NOTE | 2021-12-06 12:30 | NUR ---
Attempted to speak with pt and he is very hard of hearing and wants the nurse to look at his IV. Asked if I could call his or daughter and he asks I call Mattie.
--- NOTE | 2021-12-06 13:03 | NUR ---
PT. OOB IN CHAIR, EATING SOME LUNCH VERY SLOWLY. IVF PATENT TO PUMP AND MAGNESIUM SUPPLEMENTED IV. LENARD PATENT TO FIDE. WAITING PLACEMENT FOR SNF.
--- NOTE | 2021-12-06 13:50 | NUR ---
Called and spoke with Mattie. She states family are all working and pt would need a SNF as Dr. Cantu recommended. She is unsure if pt's only insurance is [employer]. She states she will call her mom and call me back.
--- NOTE | 2021-12-06 14:30 | NUR ---
Received a call from [facility]. Pt does not have insurance but goes to [facility]. He has not been working for sometime. I let her know I can have our people who sign pts up for insurance evaluate. They will not be able to go into his room, she gave me her mom, Elis Crouch's phone number for insurance to call. [phone]. Let her know I will start looking for a SNF, unsure what the wait time will be as pt is covid. Also, pt will need insurance for placement. Called and spoke with Angy from insurance dept. She states she attempted to speak with this pt by phone, but he could not hear her. I gave her the pts 's phone number and she will call.
--- NOTE | 2021-12-06 14:56 | NUR ---
DUE TO PRECAUTIONS, UNABLE TO VISIT PT AT THIS TIME. WILL FOLLOW
--- NOTE | 2021-12-06 15:03 | NUR ---
Received a call from Angy. Pt is now set up with [facility] and she will add his insurance to his face sheet. I contacted [facility] and pt will need to wait for placement until 14 days from the date he was diagnosed. I will check with other SNFS for their rules.
--- NOTE | 2021-12-06 15:25 | NUR ---
Faxed face sheet, progress notes, pt/ot notes, covid test, vaccination record, med list to [place] as requested by daughter. Have calls into [facility] and [facility] to check if they require 14 day wait from covid + test.
--- NOTE | 2021-12-06 15:51 | NUR ---
Called and spoke with [facility], they state they think it is 10 days wait post having covid for admission. Amber is gone and I will have to call her tomorrow.
--- NOTE | 2021-12-06 17:00 | NUR ---
SUMMARY: PT.MORE ALERT TODAY, BUT VERY SLEEPY THIS MORNING. ASPIRATION PRECAUTIONS AND HOB UP 90 DEGREES WHEN EATING AND OOB IN CHAIR FOR MEALS. ORIENTED TO SELF AND SURROUNDINGS AND FAMILY. WORKING WITH PT/OT/ST. DIET ADVANCED TO SOFT BITE SIZED AND NECTAR THICK LIQUIDS. SOFT LIQUID DARK BROWN DIARRHEA STOOLS TODAY AT LEAST 6-8. PREVENTIVE ALLEVYN TO SACRUM D/T BONY PROMINENCES. 14 FR COUDE CATHETER TO SD WITH CLEAR YELLOW URINE. LUNGS DIMINISHED, SHALLOW BREATHER. IVF PATENT TO PUMP. ORAL ANTIBIOTICS CONTINUE. WBC 9.6, K / REPLACED PO, MAG 07/20 REPLACED IV. REDRAW LABS IN THE AM. DC PLAN TO SNF, CM FOLLOWING AND PAPERWORK SENT TO 3 FACILITIES, COVID HOLD FOR NOW, [facility] APPROVED.
--- NOTE | 2021-12-06 18:26 | NUR ---
PATIENT IS ONLY NEEDING SETUP FOR MEALS, HE HAS INCREASED HIS INTAKE TODAY BUT DID NOT DRINK MUCH FLUID.
--- NOTE | 2021-12-06 19:36 | NUR ---
REPORT RECEIVED FROM LUC RN. PT IS ON PRECAUTIONS FOR COVID AND CDIFF. HE APPEARS TO BE RESTING COMFORTABLY. CALL LIGHT IN REACH.
--- NOTE | 2021-12-06 21:20 | NUR ---
PT HAD 1 MODERATE LOOSE BROWN STOOL. PT CLEANED WITH WARM WIPES. CHANGED ATTENDS, DRAW SHEET AND DRY PAD. ALEVYN CLEAN AND INTACT.PT TOLERATED WELL. BOOSTED IN BED CALL LIGHT IN REACH. WATER RENEWEDE.
--- NOTE | 2021-12-07 00:19 | NUR ---
ASSISTED RN TO CHANGE PT BRIEF, NEW TOP SHEET. CALL LIGHT WITHIN REACH NO FURTHER ASSITACE NEEDED AT THIS TIME.
--- NOTE | 2021-12-07 00:24 | NUR ---
PT HAD A MODERATE LOOSE BROWN STOOL.CLEANED AND CHANGED DEPENDS, AND DRY FLOW PAD. SOILED MEPILEX REMOVED. PT GIVEN SIP OF THICKENED WATER. CALL LIGHT IN REACH. PT IS ABLE TO VERBALIZE NEEDS.
--- NOTE | 2021-12-07 01:04 | NUR ---
PT REQUESTED HIS TEETH BE CLEANED AND PLACED IN WATER. THIS WAS DONE. THICKENED WATER REFILLED. PT IS ABLE TO DRINK WATER ON HIS OWN. USES CALL LIGHT NEEDED. NO OTHER NEEDS.
--- NOTE | 2021-12-07 01:18 | NUR ---
PTS ATTEND WAS CHECKED , HE WAS CLEAN AND DRY. NO FURTHER NEEDS.
--- NOTE | 2021-12-07 03:48 | NUR ---
PT HAD SMALL LOOSE BROWN STOOL. CLEANED AND CHANGED ATTENDS. ALLEVYN APPLIED TO COCCYX, BARRIER CREAM TO BOTTON. PT TOLERATED THIS WELL. BED ALARM ON. CALL LIGHT IN REACH.
--- NOTE | 2021-12-07 06:05 | NUR ---
SUMMARY NOTE : PT HAS HAD 4 SMALL TO MODERATE LOOSE BROWN STOOLS THIS SHIFT. 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 USES CALL LIGHT NEEDED. HAS IVF RUNNING. URINE IS CLEAR LIGHT YELLOW. PT IS ABLE TO EXPRESS NEEDS, SPEECH IS OCCAISIONALLY GARABLED. HARD OF HEARING. UPPER DENTURES CLEAN IN CUP IN BATHROOM. HEARING AIDS IN CUP AT BEDSIDE.
--- NOTE | 2021-12-07 07:45 | NUR ---
RECD. BEDSIDE REPORT FROM NIGHT RN, PT. WAKES TO NAME CALLING AND IS RESTING IN BED, NO COMPLAINTS.
--- NOTE | 2021-12-07 09:43 | NUR ---
PT. IMPROVING DAILY, WAS ABLE TO GET OUT OF BED TO EOB, STOOD TO FWW CORRECTLY, AND THEN PIVOT TX TO BSC FOR SECOND SMALL LOOSE BM INDEPENDENTLY. PT. THEN STOOD TO FWW AND AMBULATED 5 FT, TURNED AND BACKED UP TO CHAIR INDEPENDENTLY SBA. SITTING IN CHAIR AND EATING BREAKFAST WITH MINIMAL SETUP. ALL AM CARE GIVEN, ORAL CARE, WEINBERG/ROBYN CARE, PREVENTIVE ALLEVYN TO COCCYX. SMILING TODAY, COOPERATIVE WITH CARE. DC PLAN TO SNF AFTER COVID CLEARANCE.
--- NOTE | 2021-12-07 13:00 | NUR ---
AFTER VITALS WERE DONE THE NURSE STOOD BY AFTER WE GOT HIM OUT OF HIS CHAIR TO WALK HIM INTO THE SHOWER. WASHED HIS HAIR AND HIS BODY. AFTER DONE THE NURSE GOT TWO WARM BLANKETS FOR HIM. WE HELPED HIM BACK TO HIS BED. COMBED HIS HAIR AND BRAIDED IT. CLEAN GOWN AND SOCKS. PATIENT DIDN'T NEED THAT MUCH HELP GETTING BACK IN BED.
--- NOTE | 2021-12-07 13:39 | NUR ---
ASSISTED PT. WITH SHOWERING, AMBULATED FROM BED TO BR SHOWER CHAIR W FWW, SBA. SHOWERED PT. IN BR, SKIN CARE, ROBYN CARE, CHANGED CLOTHING, CHANGED BEDDING, TOLERATED WELL. INDEPENDENT IN BED.
--- NOTE | 2021-12-07 15:00 | NUR ---
Spoke with PT. Pt will need 2 more days of PT prior to dc. Called pts , Elis. She states ok for pt to dc to home on Sat. They have 2 adult daughters who live in the home and will be able to assist pt. Elis will be oot on Saturday and Saturday, but family will care for pt. Discussed any home needs and she will get a walker from [facility] for pt to use until he is up and around. Let her know I spoke with PT at [facility]. Pt was driving self. They put pt on hold, but resume PT next week. They will set up transportation through the [facility] for this pt. requests fu appt for pt. Let her know we will do this. Called Tessa at Dr. Amador office and left a message, also called directly to the clinic and left a message requesting an appt time for the next 7-10 days and a return call with date and times.
--- NOTE | 2021-12-07 15:14 | NUR ---
WEINBERG CATHETER DC'D AT 1500, INSTRUCTED TO USE URINAL, BRIEFS IN PLACE FOR DIARRHEA. TOLERATED WELL, INCREASED PO POTASSIUM GIVEN, PO ABX CONTINUE.
--- NOTE | 2021-12-07 16:51 | NUR ---
RESTING IN BED, WATCHING TV.
--- NOTE | 2021-12-07 19:20 | NUR ---
REPORT RECEIVED FROM LUC NASCIMENTO. PT IS UP IN HIS CHAIR EATING DINNER. HE IS FEEDING HIMSELF. PT IS ABLE TO USE CALL LIGHT APPROPRIATELY. HE IS ABLE TO VERBALIZE HIS NEEDS. IV FLUSHED WITH 10 ML NS, PATENT. PT HAS HIS CALL LIGHT IN REACH. WILL ALL WHEN DONE .
--- NOTE | 2021-12-07 21:15 | NUR ---
PTS BRIEF IS DRY. WHEN ASKED PT STATES HE DOES NOT NEED TO VOID. NO URGE. WILL RECHECK AND BLADDER SCAN IF NO VOID.
--- NOTE | 2021-12-07 21:30 | NUR ---
PT GETTING OOB, ALARM SET OFF, PT WANTED TO GET UP TO THE BATHROOM SINK, PT PASSES SPUTUM INTO THE TRASHCAN, THICK/WHITE, PT BRUSHING TEETH, BACK TO BED, VS TAKEN, NO FURTHER NEEDS AT THIS TIME, PT IS DTV, RN AWARE, BED ALARM IS SET
--- NOTE | 2021-12-07 23:00 | NUR ---
PT INCONTINENT OF LARGE BROWN IQUID STOOL. PT WAS GIVEN OPPORTUNITY TOVOID. DENIES ANY URGE OR NEED TO VOID. PT WAS CLEANED AND CHUX AND BRIEF CHANGED. PT BOOSTED IN BED. BED ALARM ON. CALL LIGHT IN REACH.
--- NOTE | 2021-12-08 00:04 | NUR ---
PT IS UNABLE TO VOID AFTER WEINBERG REMOVED. BLADDER SCAN COMPLETED WITH MAX AMOUNT NOTED 338 MLS.
--- NOTE | 2021-12-08 00:11 | NUR ---
DR MONTES NOTIFIED OF PT'S NO URINE OUTPUT THIS SHIFT. PT WAS GIVEN OPPORTUNITY TO VOID STANDING AT BEDSIDE AND AGAIN IN BED. PT HAS NO URGE TO VOID. NO DISCOMFORT WITH PRESSURE ON BLADDER. BLADDER SCAN DONE WITH [address] MONTES STATED THAT IF PT DOES NOT VOID OVERNIGHT TO BLADDER SCAN HIM AT 0600 AND REPORT RESULTS. PT TOLERATED PROCEDURE WELL. BED ALARM ON. CALL LIGHT IN REACH.
--- NOTE | 2021-12-08 03:36 | NUR ---
PT CALLED FOR ASSIST. HE HAD HAD A LARGE LIGHT BROWN LIQUID BM. PT WAS CLEANED. BARRIER WIPES USED AND BRRIER CREAM APPLIED TO GROIN AREA. FULL BED CHANGE. BOOSTED IN BED. PT STATES NO OTHER NEEDS. BED ALARM ON. CALL LIGHT IN REACH.
--- NOTE | 2021-12-08 04:50 | NUR ---
PT ATTEMPTED TO USE HIS URINAL. WAS NOT ABLE TO CATCH URINE. ATTENDS WET WITH URINE AND STOOL, UNABLE TO WEIGH ATTENDS FOR URINE. PT WAS INCONTINENT OF STOOL. PT WAS CLEANED, BARRIER CREAM APPPLIED TO BOTTOM , CLEAN ATTENDS ON. GIVEN CALL LIGHT AND BED ALARM SET.
--- NOTE | 2021-12-08 06:33 | NUR ---
PT WAS INCONTINENT OF URINE, UNABLE TO WEIGH. PT VOIDED IN URINAL WHILE STANDING AT BEDSIDE, 100 MLS. BLADDER SCAN AFTER VOID SHOWED RESIDUAL OF 660 MLS URINE. MD TO BE NOTIFIED.
--- NOTE | 2021-12-08 06:53 | NUR ---
DR MONTES NOTIFIED OF PTS URINARY RETENTION AFTER REMOVAL OF WEINBERG CATHETER. ORDER TO REPLACE WEINBERG TAKEN.
--- NOTE | 2021-12-08 07:30 | NUR ---
Report received from TAIWO RN. Pt is sleeping in bed. RA. Bed alarm on. Dr Cantu ordered Ragland catheter to be inserted d/t retention. Pt was started on Flomax.
--- NOTE | 2021-12-08 07:52 | NUR ---
PT SET OFF BED ALARM BECAUSE HE HAD TO VOID. PT WAS ABLE TO STAND AT BEDSIDE , VOIDED 200 MLS. HAD A LARGE BROWN BM. CLEANED AND CHANGED. BED ALARM ON. CALL LIGHT IN REACH.
--- NOTE | 2021-12-08 08:15 | NUR ---
Pt set his bed alarm on. He wanted to use the restroom. He was able to void 200 ml. Will reach out to Dr Cantu whether he still wants catheter put in.
--- NOTE | 2021-12-08 10:17 | NUR ---
Called [facility] for urology referall[facility] to reach out to patient per linnea.
--- NOTE | 2021-12-08 11:04 | NUR ---
Received call from Paola at [facility]. She states she has scheduled pt for December 27 at 3:[address] Durham has been out for 2 weeks and this is his first appt. She also offered they do daily 7 am appts if pt wants to come in sooner. Called and spoke with Elis and she states 3:15 on the works best for her. She also asks what time pt will dc tomorrow. Let her know I can ask the Dr. She would like a call back.
--- NOTE | 2021-12-08 11:13 | NUR ---
Spoke with Dr. Cantu and then called , pt will be ready at 11:00 for discharge. Elis states she has taken his clothing and will be in clean clothing and shoes.
--- NOTE | 2021-12-08 11:34 | NUR ---
DUE TO PRECAUTIONS, DID NOT SEE PT TODAY. SCHEDULED TO DC LATER TODAY
--- NOTE | 2021-12-08 12:00 | NUR ---
Dr Cantu still wants the catheter inserted. Uroject was used. weaving loom operator attempted Ragland 16 Fr insertion but was unsuccessful. Bedside RN was able to insert Coude catheter. It started draining straw colored urine. Pt was set up to eat lunch afterwards.
[2021-12-08] MEDS ORDERED: TAMSULOSIN HCL0.4 MG PO (12:03)
[2021-12-08] MEDS ORDERED: VANCOMYCIN HCL125 MG PO (12:03)
[2021-12-08] MEDS ORDERED: KLOR-CON 1010 MEQ PO (12:04)
[2021-12-08] MEDS ORDERED: MAG6464 MG PO (12:04)
[2021-12-08] MEDS ORDERED: PROBIOTIC1 EAC5 PO (12:05)
--- NOTE | 2021-12-08 12:05 | NUR ---
ReceivedRx for meds from Dr. Cantu. Called [facility] and faxed rx as they will be open until 5 pm today.
--- NOTE | 2021-12-08 13:11 | NUR ---
Called and confirmed Rx was received. Spoke with Aurelia, she will call the when Rx is filled. Received referral from Dr. Cantu for HH. Referral, face sheet, H&P, PT/OT/ST note faxed to [facility] with an extenstion for admission through 12/27/21. notified of HH referral and is the only HH in our area which accepts OHP.
--- NOTE | 2021-12-08 16:00 | NUR ---
Pt is napping in the recliner. RA. Feet elevated.
--- NOTE | 2021-12-08 18:10 | NUR ---
Pt ate his dinner while in the recliner. Pt denies pain or any other concerns. He's excited to be going home tomorrow.
--- NOTE | 2021-12-08 19:18 | NUR ---
CHANEGED PATIENT THAN STOOD BY WHILE PATIENT PUT HIMSELF TO BED. ASKED SOMEONE TO BRING ME WARM BLANKETS. PATIENT IS GETTING READY TO GO TO SLEEP.
--- NOTE | 2021-12-08 19:54 | NUR ---
RECEIVED REPORT FROM DAY SHIFT RN. PATIENT IS RESTING IN BED WITH EYES CLSOED, RR 16. CALL LIGHT IN REACH. BED ALARM ON FOR SAFETY.
--- NOTE | 2021-12-08 22:01 | NUR ---
PATIENT ASSESMENT COMPLETED. PATIENTS VITALS TAKEN AND RECORDED. INTAKE AND OUTPUT RECORDED. WEINBERG EMPTIED AND ROBYN CARE COMPLETED. PATIENT INCONT OF STOOL, ATTEND CHAGED AND ROBYN CARE COMPLETED. BARRIER CREAM APPLIED TO PATIENTS BOTTOM. PATIENT TOLERATED ACITIVYT WELL. PATIENTS IV FLUSHED AND SL PER ORDER. PATIENT IS ON RA. PATIENT IS ONLY ORIENTED TO SELF. PATIENT DENIES ANY FURTHER NEEDS. CALL LIGHT IN REACH. BED ALARM ON FOR SAFETY.
--- NOTE | 2021-12-09 00:01 | NUR ---
PATIENT IS RESTING IN BED WITH EYES CLSOED, RR 16. CALL LIGHT IN REACH. BED ALARM ON FOR SAFETY.
--- NOTE | 2021-12-09 01:20 | NUR ---
PATIENT IS RESTING IN BED WATCHING TV. PATIENT DENIES ANY NEEDS. CALL LIGHT IN REACH. BED ALARM ON FOR SAFETY.
--- NOTE | 2021-12-09 02:49 | NUR ---
PATIENT IS RESTING IN BED WITH EYES CLSOED, RR 16. CALL LIGHT IN REACH. BED ALARM ON FOR SAFETY.
--- NOTE | 2021-12-09 04:34 | NUR ---
PATIENT IS RESTING IN BED WITH EYES CLOSED, RR 17. CALL LIGHT IN REACH. BED ALARM ON FOR SAFETY.
--- NOTE | 2021-12-09 06:23 | NUR ---
VITALS TAKEN AND RECORDED. INTAKE AND OUTPUT RECORDED. WEINBERG EMPTIED. PATIENT INCONT STOOL, ATTEND CHANGED, ROBYN CARE COMPLETED, BARRIER CREAM APPLIED. FRESH WATER PROVIDED. PATIENT DENIES ANY NEEDS. CALL LIGHT IN REACH. BED ALARM ON FOR SAFETY.
--- NOTE | 2021-12-09 10:38 | NUR ---
Patient incontinent of small amount of stool. Carol care and new brief placed. Patient assisted to chair, 1PA with walker, tolerated well. Patient denies needs. Vital signs stable. Personal supplies and call light within reach. Call light within pt reach.
== END 2021-12-09 13:18 | disposition home health service (06) | DRG 871 ==
LOC: ED 10:08 → MS 11-30 01:38
PROVIDERS: ADMIT Internal Medicine; ATTEND Internal Medicine
DX: A41.4 Sepsis due to anaerobes (principal); U07.1 COVID-19; E43 Unspecified severe protein-calorie malnutrition; A04.72 Enterocolitis due to Clostridium difficile, not specified as recurrent; M48.54XA Collapsed vertebra, not elsewhere classified, thoracic region, initial encounter for fracture; Z68.1 Body mass index [BMI] 19.9 or less, adult; E87.2 Acidosis; N40.1 Benign prostatic hyperplasia with lower urinary tract symptoms; R33.8 Other retention of urine; R62.7 Adult failure to thrive; E87.6 Hypokalemia; D64.9 Anemia, unspecified; H90.3 Sensorineural hearing loss, bilateral; Z86.73 Personal history of transient ischemic attack (TIA), and cerebral infarction without residual deficits; R13.12 Dysphagia, oropharyngeal phase; M54.50 Low back pain, unspecified; G89.29 Other chronic pain; K21.9 Gastro-esophageal reflux disease without esophagitis; F17.290 Nicotine dependence, other tobacco product, uncomplicated; Z90.49 Acquired absence of other specified parts of digestive tract; Z79.82 Long term (current) use of aspirin; Z79.899 Other long term (current) drug therapy
CPT/HCPCS: 36415; 51798; 71045; 74177; 80048; 80053; 81001; 82378; 83605; 83630; 83735; 85025; 85060; 87040; 87045; 87493; 87502; 92526; 92610; 93005; 93010; 94760; 94762; 96361; 96365; 96367; 96375; 97116; 97163; 97167; 97530; 97535; 99285-25; A9270; C9113; J0744; J1650; J2001; J2405; J2704; J3010; J3475; J3480; J7030; J7120; J7121; Q9967; U0003

== ENCOUNTER 2022-08-01 18:31 | Emergency (ER) | payer OTHER ==
[~2022-08-01] VITALS: Ht 165.1 cm; Wt 72.3 kg
[~2022-08-01 18:31] MED LIST changes: +FEROSUL325 MG PO; +KLOR-CON 1010 MEQ PO; +MAG6464 MG PO; +PROBIOTIC1 EAC5 PO; +TAMSULOSIN HCL0.4 MG PO; +VANCOMYCIN HCL125 MG PO; +VITAMIN C500 M1 PO
--- OUTSIDE RECORDS SUMMARY | 2022-08-01 18:35 | XMS ---
PreManage Notification: CAROLINE SKELTON Security Automobile Service Station Mechanic Events No recent Security Events currently on file CRITERIA MET - PDMP CARE PROVIDERS SHARON FORREST Trial Mgr: Foot \T\ Ankle Surgery Current PHONE: [phone] VIVIAN ADAMS Trial Mgr Carlie Ewing PHONE: [phone] EV BAILEY Internal Medicine Current PHONE: [phone] Funmi Pink Profile Shaper Operator/Can Repairer 05/15/2022-Current PHONE: [phone] JUANITO GOLDSMITH Nurse Practitioner: Family Current PHONE: Unknown ESTHELA GERMAIN Internal Medicine Current PHONE: [phone] SHANNON HOUGH Nurse Practitioner: Family Current PHONE: [phone] ELIOT NIELSON Nurse Practitioner Carlie CHAVEZ PHONE: [phone] BROO[facility] Current PHONE: Unknown [facility] Current PHONE: [phone] LAZARO CHE [facility] 12/31/2019-Current PHONE: Unknown Edwin has no Care Guidelines for this patient. Ynes VISIT COUNT (12 MO.) 3 [facility] TOTAL 3 NOTE: Visits indicate total known visits. ED/UCC VISIT TRACKING (12 MO.) 08/01/2022 18:31 [facility] [place] TYPE: Emergency COMPLAINT: - CATHETER PROBLEM 04/01/2022 15:37 [facility] [place] TYPE: Emergency COMPLAINT: - STROKE SYMPTOMS DIAGNOSES: - Personal history of nicotine dependence - Traumatic subdural hemorrhage with loss of consciousness of unspecified duration, initial encounter - Altered mental status, unspecified - Contact with and (suspected) exposure to COVID-19 - Anemia, unspecified - Fall on same level from slipping, tripping and stumbling with subsequent striking against unspecified object, initial encounter - Other joint terminal attack controller (current) drug therapy - termite inspector (current) use of aspirin 11/29/2021 10:08 [facility] [place] TYPE: Emergency COMPLAINT: - BACK PAIN INPATIENT VISIT TRACKING (12 MO.) 04/01/2022 21:11 [facility] TYPE: Surgery DIAGNOSES: 23805. Traumatic subdural hemorrhage with loss of consciousness of unspecified duration, initial encounter 90762. Traumatic subdural hemorrhage with loss of consciousness status unknown, initial encounter 43[address]. [place] [address]. Unspecified fracture of T9-T10 vertebra, subsequent encounter for fracture with routine healing 11/30/2021 01:38 [facility] [place] TYPE: Medical Surgical COMPLAINT: - COLITIS DIAGNOSES: - Anemia, unspecified - Sepsis due to anaerobes - longterm (current) use of aspirin - Gastro-esophageal reflux disease without esophagitis - Other long-term (current) drug therapy - Body mass index [BMI] 19.9 or less, adult - Other chronic pain - Low back pain, unspecified - Adult failure to thrive - COVID-19 - Body mass index [BMI] 19.9 or less, adult - Personal history of transient ischemic attack (TIA), and cerebral infarction without residual deficits - Low back pain, unspecified - Acidosis - COVID-19 - Enterocolitis due to Clostridium difficile, not specified as recurrent - Other chronic pain - Personal history of transient ischemic attack (TIA), and cerebral infarction without residual deficits - Dysphagia, oropharyngeal phase - Hypokalemia - Anemia, unspecified - Sensorineural hearing loss, bilateral - Dysphagia, oropharyngeal phase - Benign prostatic hyperplasia with lower urinary tract symptoms - Hypokalemia - termite inspector (current) use of aspirin - Collapsed vertebra, not elsewhere classified, thoracic region, initial encounter for fracture - Other retention of urine - Nicotine dependence, other tobacco product, uncomplicated - Nicotine dependence, other tobacco product, uncomplicated - Acquired absence of other specified parts of digestive tract - Other retention of urine - Other long-term (current) drug therapy - Acidosis - Gastro-esophageal reflux disease without esophagitis - Collapsed vertebra, not elsewhere classified, thoracic region, initial encounter for fracture - Benign prostatic hyperplasia with lower urinary tract symptoms - Unspecified severe protein-calorie malnutrition - Adult failure to thrive - Unspecified severe protein-calorie malnutrition - Acquired absence of other specified parts of digestive tract - Sensorineural hearing loss, bilateral - Sepsis due to anaerobes [id number]
[2022-08-01] MEDS ORDERED: MACROBID 100 M100 MG PO (20:23)
== END 2022-08-01 20:39 | disposition home or self-care (01) ==
LOC: ED 18:31
PROC: 0T9B70Z Drainage of Bladder with Drainage Device, Via Natural or Artificial Opening (ICD-10-PCS; principal; 2022-08-01)
DX: Z46.6 Encounter for fitting and adjustment of urinary device (principal); N39.0 Urinary tract infection, site not specified; D64.9 Anemia, unspecified; Z86.73 Personal history of transient ischemic attack (TIA), and cerebral infarction without residual deficits; Z87.891 Personal history of nicotine dependence; Z79.899 Other long term (current) drug therapy; Z79.82 Long term (current) use of aspirin
CPT/HCPCS: 51702; 81001; 99283-25

== ENCOUNTER 2022-11-24 02:15 | Emergency (ER) | payer OTHER ==
[~2022-11-24] VITALS: Ht 165.1 cm; Wt 41.0 kg
[~2022-11-24 02:15] MED LIST changes: +MACROBID 100 M100 MG PO
--- OUTSIDE RECORDS SUMMARY | 2022-11-24 02:18 | XMS ---
PreManage Notification: CAROLINE SKELTON Security Beef Cattle Farm Manager Events No recent Security Events currently on file CRITERIA MET - PDMP CARE PROVIDERS -, Moises- Dentist: Financial Dealers [facility] PHONE: [phone] SHARON FORREST Compressor Mechanic: Foot \T\ Ankle Surgery Current PHONE: [phone] VIVIAN ADAMS Compressor Mechanic Carlie WORLEY DPM PHONE: [phone] EV BAILEY Internal Medicine Current PHONE: [phone] Funmi Pink Learning Disabilities Specialist/Oven Drier Tender 08/15/2022-Current PHONE: [phone] JUANITO GOLDSMITH Nurse Practitioner: Family Current PHONE: Unknown ESTHELA GERMAIN Internal Medicine Current PHONE: [phone] SHANNON HOUGH Nurse Practitioner: Family Current PHONE: [phone] ELIOT NIELSON Nurse Practitioner Current [place] PHONE: [phone] BROOKE [facility] Current PHONE: Unknown [facility] Current PHONE: [phone] LAZARO CHE [facility] 12/31/2019-Current PHONE: Unknown Edwin has no Care Guidelines for this patient. Ynes VISIT COUNT (12 MO.) Fernando [facility] TOTAL 5 NOTE: Visits indicate total known visits. ED/UCC VISIT TRACKING (12 MO.) 11/24/2022 02:16 [facility] [place] TYPE: Emergency COMPLAINT: - HEAD/RT ANKLE PAIN 08/24/2022 20:15 [facility] [place] TYPE: Emergency COMPLAINT: - CATH PROBLEM 08/01/2022 18:31 [facility] [place] TYPE: Emergency COMPLAINT: - CATHETER PROBLEM DIAGNOSES: - Anemia, unspecified - Encounter for fitting and adjustment of urinary device - Infection and inflammatory reaction due to indwelling urethral catheter, initial encounter - intermediate manager (current) use of aspirin - Other long term care administrator (current) drug therapy - Pain due to genitourinary prosthetic devices, implants and grafts, initial encounter - Personal history of nicotine dependence - Personal history of transient ischemic attack (TIA), and cerebral infarction without residual deficits - Surgical operation with implant of artificial internal device as the cause of abnormal reaction of the patient, or of later complication, without mention of misadventure at the time of the procedure - Urinary tract infection, site not specified 04/01/2022 15:37 [facility] [place] TYPE: Emergency COMPLAINT: - STROKE SYMPTOMS DIAGNOSES: - Altered mental status, unspecified - Anemia, unspecified - Contact with and (suspected) exposure to COVID-19 - Fall on same level from slipping, tripping and stumbling with subsequent striking against unspecified object, initial encounter - snf (current) use of aspirin - Other long term care administrator (current) drug therapy - Personal history of nicotine dependence - Traumatic subdural hemorrhage with loss of consciousness of unspecified duration, initial encounter 11/29/2021 10:08 [facility] [place] TYPE: Emergency COMPLAINT: - BACK PAIN INPATIENT VISIT TRACKING (12 MO.) 04/01/2022 21:11 [facility] TYPE: Surgery DIAGNOSES: 67248. Traumatic subdural hemorrhage with loss of consciousness of unspecified duration, initial encounter 52284. Traumatic subdural hemorrhage with loss of consciousness status unknown, initial encounter [address]. [place] [address]. Unspecified fracture of T9-T10 vertebra, subsequent encounter for fracture with routine healing 11/30/2021 01:38 [facility] TYPE: Medical Surgical COMPLAINT: - COLITIS DIAGNOSES: - Acidosis - Acidosis - Acquired absence of other specified parts of digestive tract - Acquired absence of other specified parts of digestive tract - Adult failure to thrive - Adult failure to thrive - Anemia, unspecified - Anemia, unspecified - Benign prostatic hyperplasia with lower urinary tract symptoms - Benign prostatic hyperplasia with lower urinary tract symptoms - Body mass index [BMI] 19.9 or less, adult - Body mass index [BMI] 19.9 or less, adult - Collapsed vertebra, not elsewhere classified, thoracic region, initial encounter for fracture - Collapsed vertebra, not elsewhere classified, thoracic region, initial encounter for fracture - COVID-19 - COVID-19 - Dysphagia, oropharyngeal phase - Dysphagia, oropharyngeal phase - Enterocolitis due to Clostridium difficile, not specified as recurrent - Gastro-esophageal reflux disease without esophagitis - Gastro-esophageal reflux disease without esophagitis - Hypokalemia - Hypokalemia - snf (current) use of aspirin - intermediate manager (current) use of aspirin - Low back pain, unspecified - Low back pain, unspecified - Nicotine dependence, other tobacco product, uncomplicated - Nicotine dependence, other tobacco product, uncomplicated - Other chronic pain - Other chronic pain - Other fci (current) drug therapy - Other long term care administrator (current) drug therapy - Other retention of urine - Other retention of urine - Personal history of transient ischemic attack (TIA), and cerebral infarction without residual deficits - Personal history of transient ischemic attack (TIA), and cerebral infarction without residual deficits - Sensorineural hearing loss, bilateral - Sensorineural hearing loss, bilateral - Sepsis due to anaerobes - Sepsis due to anaerobes - Unspecified severe protein-calorie malnutrition - Unspecified severe protein-calorie malnutrition [email or web address]
[2022-11-24] MEDS ORDERED: TRAMADOL HCL50 MG PO (08:01)
[2022-11-24 08:09] VITALS: BP 122/74
== END 2022-11-24 08:11 | disposition home or self-care (01) ==
LOC: ED 02:15
DX: S82.831A Other fracture of upper and lower end of right fibula, initial encounter for closed fracture (principal); M25.561 Pain in right knee; W01.0XXA Fall on same level from slipping, tripping and stumbling without subsequent striking against object, initial encounter; Z87.891 Personal history of nicotine dependence; Z79.899 Other long term (current) drug therapy; Z79.82 Long term (current) use of aspirin
CPT/HCPCS: 70450; 73560; 73610

== ENCOUNTER 2023-09-07 08:39 | Emergency (ER) | payer MEDICARE, OTHER ==
[~2023-09-07] VITALS: Ht 165.1 cm; Wt 38.0 kg
[~2023-09-07 08:39] MED LIST changes: +ACETAMINOPHEN325 M1 PT; +AKWA TEARS15 ML OPTH; +ATIVAN1 MG PT; +BUTALB-ACETAMI1 EACH PT; +DULCOLAX10 MG PR; +FLEET ENEMA133 ML PR; +LIDODERM1 EACH TOP; +MIRALAX119 GM PT; +MORPHINE S20 MG/5 ML PO; +NARCAN4 MG NAS; +NASAL SPRAY88 ML NAS; +ONDANSETRON ODT8 MG PT; +TRAMADOL HCL50 MG PO
--- OUTSIDE RECORDS SUMMARY | 2023-09-07 08:41 | XMS ---
PreManage Notification: CAROLINE SKELTON Security Manager Garage Events No recent Security Events currently on file CRITERIA MET - PDM - [facility] - 2 Visits in 30 Days CARE PROVIDERS Funmi Pink Pharmacy Services Representative/Mash Filter Operator 07/15/2023-Current PHONE: [phone] LAZARO CHE [facility] 12/31/2019-Current PHONE: Unknown Moisse Freire- Dentist: Assembler Utility Buildings [facility] PHONE: [phone] YESI VILLEGAS Nurse Practitioner: Family Current PHONE: [phone] SHARON FORREST Parts Classifier: Foot \T\ Ankle Surgery Current PHONE: [phone] VIVIAN ADAMS Parts Classifier Carlie Ewing PHONE: [phone] EV BAILEY Internal Medicine Current PHONE: [phone] JUANITO GOLDSMITH Nurse Practitioner: Family Current PHONE: Unknown ESTHELA GERMAIN Internal Medicine Current PHONE: [phone] SHANNON HOUGH Nurse Practitioner: Psychiatric/Mental Health Current PHONE: [phone] ELIOT NIELSON Nurse Practitioner [facility] PHONE: [phone] [facility] Current PHONE: Unknown LUISITO CRAIN Family [facility] Current PHONE: [phone] [facility] PHONE: [phone] Edwin has no Care Guidelines for this patient. Ynes VISIT COUNT (12 MO.) 4 [facility] TOTAL 4 NOTE: Visits indicate total known visits. ED/UCC VISIT TRACKING (12 MO.) 09/07/2023 08:39 [facility] [place] TYPE: Emergency COMPLAINT: - WOUND CHECK 09/06/2023 13:02 [facility] [place] TYPE: Emergency COMPLAINT: - ALTERED LOC 07/20/2023 16:58 [facility] [place] TYPE: Emergency COMPLAINT: - FALL/HIT HEAD DIAGNOSES: - Laceration without foreign body of other part of head, initial encounter - joint terminal attack controller (current) use of aspirin - Other marine oil terminal superintendent (current) drug therapy - Personal history of nicotine dependence - Traumatic subdural hemorrhage without loss of consciousness, initial encounter - Unspecified fall, initial encounter 11/24/2022 02:16 [facility] [place] TYPE: Emergency COMPLAINT: - HEAD/RT ANKLE PAIN DIAGNOSES: - Fall on same level from slipping, tripping and stumbling without subsequent striking against object, initial encounter - FDC (current) use of aspirin - Other fracture of upper and lower end of right fibula, initial encounter for closed fracture - Other [place] [facility] (current) drug therapy - Pain in right ankle and joints of right foot - Pain in right knee - Personal history of nicotine dependence INPATIENT VISIT TRACKING (12 MO.) [facility]23 [facility] DIAGNOSES: - Dysphagia, unspecified - Encounter for palliative care - Other malaise - Other specified counseling - Traumatic subdural hemorrhage without loss of consciousness, initial encounter - Traumatic subdural hemorrhage without loss of consciousness, subsequent encounter - Subdural hemtoma [email or web address]
[2023-09-07] MEDS ORDERED: DIATRIZOATE MEGLU/DIATRIZO SOD 15 ML BTL PO ONE (09:30)
[2023-09-07 10:16] VITALS: BP 123/80
== END 2023-09-07 10:31 | disposition home or self-care (01) ==
LOC: ED 08:39
DX: Z43.1 Encounter for attention to gastrostomy (principal); F41.9 Anxiety disorder, unspecified; G47.00 Insomnia, unspecified; K62.9 Disease of anus and rectum, unspecified; K21.9 Gastro-esophageal reflux disease without esophagitis; G40.909 Epilepsy, unspecified, not intractable, without status epilepticus; N40.0 Benign prostatic hyperplasia without lower urinary tract symptoms; Z87.891 Personal history of nicotine dependence; Z79.899 Other long term (current) drug therapy
CPT/HCPCS: 74018